=== PATIENT | male | born 1990 | race Hispanic/Latino ===

== ENCOUNTER 2018-03-09 18:04 | Emergency (ER) | payer SELFPAY ==
[2018-03-09 18:58] LABS: EOSINOPHILS % (AUTO) 1.6 % (0.0-8.0); HEMATOCRIT 42.1 % (42-54); LYMPHOCYTES % (AUTO) 35.1 % (21.0-51.0); MEAN CORPUSCULAR HEMOGLOBIN 29.1 pg (27.0-33.0); MEAN CORPUSCULAR HGB CONC 34.6 g/dL (32.0-36.0); MEAN CORPUSCULAR VOLUME 83.9 fL (79-99); NEUTROPHILS % (AUTO) 54.3 % (40.0-77.0); NUCLEATED RED BLOOD CELLS 0.1 % (0.0-0.19); PLATELET COUNT (AUTO) 251 K/uL (130-400); RED BLOOD CELL COUNT(AUTO) 5.02 MIL/uL (4.50-6.20); WHITE BLOOD COUNT (AUTO) 7.7 K/uL (4.8-10.8)
[2018-03-09 19:00] LABS: APPEARANCE,URINE Clear (CLEAR); BILIRUBIN,URINE Negative (NEGATIVE); COLOR,URINE Yellow (YELLOW); GLUCOSE, URINE (UA) Negative (NEGATIVE); KETONES,URINE Trace mg/dL (NEGATIVE); LEUKOCYTE ESTERASE ,URINE Negative (NEGATIVE); NITRATE,URINE Negative (NEGATIVE); OCCULT BLOOD,URINE Negative (NEGATIVE); PROTEIN,URINE Negative (NEGATIVE)
[2018-03-09 19:06] LABS: CREATININE 0.8 mg/dL (0.5-1.5); POTASSIUM 4.1 mmol/L (3.5-5.1)
[2018-03-09 19:08] LABS: AMPHET/METH SCREEN,URINE NEGATIVE (NEGATIVE); BARBITURATE SCREEN, URINE NEGATIVE (NEGATIVE); BENZODIAZEPINES SCREEN,URINE NEGATIVE (NEGATIVE); CANNABINOID SCREEN,URINE POSITIVE (NEGATIVE); COCAINE SCREEN,URINE NEGATIVE (NEGATIVE); OPIATE SCREEN,URINE NEGATIVE (NEGATIVE); PHENCYCLIDINE SCREEN,URINE NEGATIVE (NEGATIVE)
[2018-03-09 19:11] LABS: ALBUMIN 3.4 g/dL (3.5-5.0); BILIRUBIN,TOTAL 0.1 mg/dL (0.2-1.0); TOTAL PROTEIN, SERUM 6.6 g/dL (6.0-8.3)
== END 2018-03-09 20:24 | disposition home or self-care (01) ==
LOC: EDH 18:04
DX: K29.00 Acute gastritis without bleeding (principal)
CPT/HCPCS: 36415; 80053; 80305; 81003; 83690; 85025

== ENCOUNTER 2020-07-03 00:57 | Emergency (ER) | payer OTHER ==
[2020-07-03] MEDS ORDERED: FLUORESCEIN SODIUM 1 STRIP STRIP ONE (01:14)
[2020-07-03] MEDS ORDERED: TETRACAINE HCL 0.5% 4 ML OPHTH SOLN ONE (01:14)
== END 2020-07-03 01:51 | disposition home or self-care (01) ==
LOC: EDH 00:57
DX: S00.83XA Contusion of other part of head, initial encounter (principal); S50.811A Abrasion of right forearm, initial encounter; X58.XXXA Exposure to other specified factors, initial encounter; Y93.89 Activity, other specified; Y92.89 Other specified places as the place of occurrence of the external cause; Y99.8 Other external cause status

== ENCOUNTER 2024-06-24 19:41 | Inpatient (IN) | payer BC ==
[~2024-06-24] VITALS: Ht 162.6 cm; Wt 38.6 kg
[2024-06-24 23:28] VITALS: PULSE 89; O2SAT 97
[2024-06-24 23:45] VITALS: O2SAT 97
[2024-06-24 23:49] VITALS: BP 149/77; PULSE 96; RESP 29; TEMP 98.3
[2024-06-25] VITALS (47 sets, daily range): BP systolic 118–160; BP diastolic 74–101; PULSE 74–106; RESP 12–22; TEMP 98.1–99.1; O2SAT 97–100
[2024-06-25 01:18] LABS: APPEARANCE,URINE CLEAR (CLEAR); BILIRUBIN,URINE NEGATIVE (NEGATIVE); COLOR,URINE LIGHT-YELLOW (YELLOW); GLUCOSE, URINE (UA) NEGATIVE (NEGATIVE); KETONES,URINE NEGATIVE (NEGATIVE); LEUKOCYTE ESTERASE ,URINE 25 Leu/uL (NEGATIVE); NITRATE,URINE NEGATIVE (NEGATIVE); OCCULT BLOOD,URINE NEGATIVE (NEGATIVE); PROTEIN,URINE NEGATIVE (NEGATIVE); UROBILINOGEN,URINE 0.2 mg/dL (0.2-1.0)
[2024-06-25 01:30] LABS: ADD UA MICROSCOPIC YES
[2024-06-25] MEDS ORDERED: HYDROcodone/APAP 5/325 1 TAB TABLET PO PRN (01:30)
[2024-06-25] MEDS ORDERED: acetaMINOPHEN 650 MG SUPPOSITORY RC PRN (01:30)
[2024-06-25] MEDS ORDERED: acetaMINOPHEN 325 MG TAB PO PRN (01:30)
[2024-06-25 01:34] LABS: BACTERIA,URINE RARE /HPF (None Seen); MUCUS,URINE FEW LPF (None Seen); YEAST,URINE BUDDING FEW /HPF (None Seen); YEAST,URINE HYPHAE FEW /HPF (None Seen)
[2024-06-25 01:41] LABS: BASOPHILS # (AUTO) 0.04 K/uL (0.00-0.20); BASOPHILS % (AUTO) 0.3 % (0.0-5.0); EOSINOPHILS # (AUTO) 0.05 K/uL (0.00-0.70); EOSINOPHILS % (AUTO) 0.4 % (0.0-8.0); HEMATOCRIT 29.1 % (42-54); IMMATURE GRANULOCYTE ABSOLUTE 0.06 K/uL (0-1); LYMPHOCYTES # (AUTO) 0.8 K/uL (1.0-4.8); LYMPHOCYTES % (AUTO) 5.9 % (21.0-51.0); MEAN CORPUSCULAR HEMOGLOBIN 27.8 pg (27.0-33.0); MEAN CORPUSCULAR HGB CONC 31.3 g/dL (32.0-36.0); MONOCYTES # (AUTO) 1.5 K/uL (0.1-1.0); MONOCYTES % (AUTO) 10.8 % (3.0-13.0); NEUTROPHILS # (AUTO) 11.1 K/uL (1.8-7.7); NEUTROPHILS % (AUTO) 82.2 % (40.0-77.0); PLATELET COUNT (AUTO) 423 K/uL (130-400); RED BLOOD CELL COUNT(AUTO) 3.27 MIL/uL (4.50-6.20); RED CELL DISTRIBUTION WIDTH 17.5 % (11.0-15.5); WHITE BLOOD COUNT (AUTO) 13.6 K/uL (4.8-10.8)
[2024-06-25 01:44] LABS: ABG BASE EXCESS 5.4 mmol/L (-2.0-3.0); ABG HCO3 28.5 mmol/L (21.0-28.0); ABG OXYGEN SATURATION 98.4 % (94.0-98.0); ABG PCO2 37 mmHg (35-48); ABG PH 7.506 (7.350-7.450); PO2, ARTERIAL BG 111.8 mmHg (83.0-108.0); VENT MODE, BG AC VC (ROOM AIR)
[2024-06-25] MEDS: 0.9%NACL 1000ML 1,000 ML IV SCH (01:58)
[2024-06-25 01:59] LABS: ALBUMIN 1.3 g/dL (3.5-5.0); BILIRUBIN,TOTAL 0.2 mg/dL (0.2-1.0); CREATININE 0.5 mg/dL (0.5-1.3); PHOSPHORUS 3.7 mg/dL (2.5-4.9); TOTAL PROTEIN, SERUM 5.8 g/dL (6.0-8.3)
[2024-06-25] MEDS ORDERED: hydroMORPHone 0.5 MG SYG (0.5MG/0.5ML) IVP PRN ×2 (02:00→10:30)
[2024-06-25 02:03] LABS: POTASSIUM 2.9 mmol/L (3.5-5.1)
[2024-06-25] MEDS: PoTASSium chloRIDE 20MEQ/100ML 100 ML IV PRN (02:49)
[2024-06-25] MEDS: 0.9% NACL 500ML IV.SOLN 500 ML IV SCH (02:49)
[2024-06-25 04:09] LABS: SARS-CoV-2, RNA, NAAT NEGATIVE SARS CoV-2 (NEGATIVE)
[2024-06-25 04:14] LABS: INFLUENZA TYPE A Negative For Type A (NEGATIVE); INFLUENZA TYPE B Negative For Type B (NEGATIVE)
[2024-06-25] MEDS ORDERED: METO25TA6 PO (05:18)
[2024-06-25] MEDS ORDERED: FENT1PAT62 TD (05:18)
[2024-06-25] MEDS ORDERED: METO5SOL26 PO (05:18)
[2024-06-25] MEDS ORDERED: PANT40VI IV (05:18)
[2024-06-25] MEDS ORDERED: QUET50TA24 PO (05:18)
[2024-06-25] MEDS ORDERED: FOLI1 PO (05:18)
[2024-06-25] MEDS ORDERED: DIAZ10TA4 PO (05:18)
[2024-06-25] MEDS ORDERED: SCOP1PAT11 TD (05:18)
[2024-06-25] MEDS: INSULIN humuLIN R 100 UNIT/ML 3ML SQ SCH (06:00)
[2024-06-25] MEDS: IpraTROPium 0.5 MG/2.5 ML INH IH SCH (06:42)
[2024-06-25 10:58] LABS: ABG BASE EXCESS 4.4 mmol/L (-2.0-3.0); ABG OXYGEN SATURATION 99.1 % (94.0-98.0); ABG PCO2 38 mmHg (35-48); ABG PH 7.482 (7.350-7.450); PO2, ARTERIAL BG 155.8 mmHg (83.0-108.0); VENT MODE, BG AC (ROOM AIR)
[2024-06-25 11:13] LABS: BILIRUBIN,TOTAL 0.1 mg/dL (0.2-1.0); CREATININE 0.3 mg/dL (0.5-1.3); PHOSPHORUS 3.6 mg/dL (2.5-4.9); POTASSIUM 3.1 mmol/L (3.5-5.1); TOTAL PROTEIN, SERUM 4.8 g/dL (6.0-8.3)
[2024-06-25 11:20] LABS: INR 1.34 (0.85-1.15); PROTHROMBIN TIME 14.2 SEC (9.6-11.6)
[2024-06-25 11:32] LABS: BASOPHILS # (AUTO) 0.03 K/uL (0.00-0.20); BASOPHILS % (AUTO) 0.2 % (0.0-5.0); EOSINOPHILS # (AUTO) 0.01 K/uL (0.00-0.70); EOSINOPHILS % (AUTO) 0.1 % (0.0-8.0); HEMATOCRIT 25.2 % (42-54); IMMATURE GRANULOCYTE ABSOLUTE 0.08 K/uL (0-1); LYMPHOCYTES # (AUTO) 0.8 K/uL (1.0-4.8); LYMPHOCYTES % (AUTO) 5.9 % (21.0-51.0); MEAN CORPUSCULAR HEMOGLOBIN 28.1 pg (27.0-33.0); MEAN CORPUSCULAR HGB CONC 31.3 g/dL (32.0-36.0); MEAN CORPUSCULAR VOLUME 89.7 fL (79-99); MONOCYTES # (AUTO) 1.2 K/uL (0.1-1.0); MONOCYTES % (AUTO) 9.2 % (3.0-13.0); NEUTROPHILS # (AUTO) 11.3 K/uL (1.8-7.7); PLATELET COUNT (AUTO) 310 K/uL (130-400); RED BLOOD CELL COUNT(AUTO) 2.81 MIL/uL (4.50-6.20); RED CELL DISTRIBUTION WIDTH 17.6 % (11.0-15.5); WHITE BLOOD COUNT (AUTO) 13.5 K/uL (4.8-10.8)
[2024-06-25] MEDS: DEXTROSE 50%-WATER 50 ML DISP.SYRIN IV ONE (11:52)
[2024-06-25] MEDS: diazePAM 5 MG TAB PO SCH (12:30)
[2024-06-25] MEDS: SCOPOLAMINE HYDROBROMIDE 1 EACH ADH..PATCH TD SCH (12:30)
[2024-06-25] MEDS: LACTATED RINGERS 1000ML 1,000 ML IV SCH (12:31)
[2024-06-25] MEDS: queTIAPine fuMARate 25 MG TAB PO SCH (15:47)
[2024-06-25] MEDS: ENOXAPARIN SODIUM 40 MG/0.4 ML SYRINGE SQ ONE (15:49)
[2024-06-25] MEDS: PoTASSium chl 10% ELIXIR 20MEQ 20 MEQ/15 ML UDCUP PO PRN (15:50)
[2024-06-25] MEDS: PANTOPrazole 40 MG/VIAL IV SCH (20:34)
[2024-06-25] MEDS: metoPROLOL tartRATE 25 MG TAB PO SCH (20:34)
[2024-06-26] VITALS (38 sets, daily range): BP systolic 128–169; BP diastolic 63–94; PULSE 73–125; RESP 12–24; TEMP 97.9–98.6; O2SAT 97–100
[2024-06-26 03:47] LABS: BASOPHILS # (AUTO) 0.04 K/uL (0.00-0.20); BASOPHILS % (AUTO) 0.3 % (0.0-5.0); EOSINOPHILS # (AUTO) 0.04 K/uL (0.00-0.70); EOSINOPHILS % (AUTO) 0.3 % (0.0-8.0); HEMATOCRIT 26.6 % (42-54); IMMATURE GRANULOCYTE ABSOLUTE 0.09 K/uL (0-1); LYMPHOCYTES # (AUTO) 0.9 K/uL (1.0-4.8); LYMPHOCYTES % (AUTO) 7.9 % (21.0-51.0); MEAN CORPUSCULAR HEMOGLOBIN 27.6 pg (27.0-33.0); MEAN CORPUSCULAR HGB CONC 30.5 g/dL (32.0-36.0); MEAN CORPUSCULAR VOLUME 90.8 fL (79-99); MONOCYTES # (AUTO) 1.2 K/uL (0.1-1.0); MONOCYTES % (AUTO) 10.3 % (3.0-13.0); NEUTROPHILS # (AUTO) 9.5 K/uL (1.8-7.7); NEUTROPHILS % (AUTO) 80.4 % (40.0-77.0); PLATELET COUNT (AUTO) 328 K/uL (130-400); RED BLOOD CELL COUNT(AUTO) 2.93 MIL/uL (4.50-6.20); RED CELL DISTRIBUTION WIDTH 17.6 % (11.0-15.5); WHITE BLOOD COUNT (AUTO) 11.8 K/uL (4.8-10.8)
[2024-06-26 05:37] LABS: CREATININE 0.4 mg/dL (0.5-1.3); MAGNESIUM 1.4 mg/dL (1.80-2.40); PHOSPHORUS 3.1 mg/dL (2.5-4.9)
[2024-06-26] MEDS: traMADol HCL 50 MG TABLET PO PRN (05:37)
[2024-06-26] MEDS: MAGNESIUM 2GM PREMIX 50ML 50 ML IV PRN (06:46)
[2024-06-26] MEDS: ENOXAPARIN SODIUM 30 MG/0.3 ML SQ SCH (08:22)
[2024-06-26] MEDS: FOLic ACID 1 MG TABLET PO SCH (08:30)
[2024-06-26] MEDS ORDERED: ENOXAPARIN SODIUM 40 MG/0.4 ML SYRINGE SQ SCH (09:00)
[2024-06-26] MEDS ORDERED: LORA2VIA34 IVP (12:29)
[2024-06-26] MEDS ORDERED: LACT-461 PO (12:29)
[2024-06-26] MEDS ORDERED: ACET650O3 PO (12:29)
[2024-06-26] MEDS ORDERED: BALS60OI TP (12:29)
[2024-06-26] MEDS ORDERED: ACET650S14 RC (12:29)
[2024-06-26] MEDS ORDERED: MIDO10TA PO (12:29)
[2024-06-26] MEDS ORDERED: AMPI3VIA IV (12:29)
[2024-06-26] MEDS ORDERED: PROM25VI IVP (12:29)
[2024-06-26] MEDS ORDERED: TIGE50VI4 IV (12:29)
[2024-06-26] MEDS ORDERED: NYST1POW10 MC (12:29)
[2024-06-26] MEDS: dexmedeTOMIDine 400MCG/NS100ML IV PRN (21:52)
[2024-06-26] MEDS: dexmedeTOMIDine 400MCG/NS100ML IV ONE (21:53)
[2024-06-27] VITALS (39 sets, daily range): BP systolic 125–166; BP diastolic 68–91; PULSE 61–100; RESP 14–27; TEMP 98.2–99.2; O2SAT 73–100
[2024-06-27] MEDS: ZOSYN 3.375GM +NS 50ML IV SCH (00:19)
[2024-06-27 03:57] LABS: BASOPHILS # (AUTO) 0.03 K/uL (0.00-0.20); BASOPHILS % (AUTO) 0.3 % (0.0-5.0); EOSINOPHILS # (AUTO) 0.05 K/uL (0.00-0.70); EOSINOPHILS % (AUTO) 0.5 % (0.0-8.0); HEMATOCRIT 27.5 % (42-54); IMMATURE GRANULOCYTE ABSOLUTE 0.05 K/uL (0-1); LYMPHOCYTES # (AUTO) 1.3 K/uL (1.0-4.8); LYMPHOCYTES % (AUTO) 13.4 % (21.0-51.0); MEAN CORPUSCULAR HGB CONC 31.3 g/dL (32.0-36.0); MEAN CORPUSCULAR VOLUME 89.6 fL (79-99); MONOCYTES # (AUTO) 0.9 K/uL (0.1-1.0); MONOCYTES % (AUTO) 9.4 % (3.0-13.0); NEUTROPHILS # (AUTO) 7.6 K/uL (1.8-7.7); NEUTROPHILS % (AUTO) 75.9 % (40.0-77.0); PLATELET COUNT (AUTO) 292 K/uL (130-400); RED BLOOD CELL COUNT(AUTO) 3.07 MIL/uL (4.50-6.20)
[2024-06-27 04:27] LABS: CREATININE 0.3 mg/dL (0.5-1.3); POTASSIUM 3.5 mmol/L (3.5-5.1)
[2024-06-27 04:40] LABS: ABG BASE EXCESS 3.9 mmol/L (-2.0-3.0); ABG HCO3 28.7 mmol/L (21.0-28.0); ABG OXYGEN SATURATION 74.7 % (94.0-98.0); ABG PCO2 44 mmHg (35-48); ABG PH 7.435 (7.350-7.450); DEVICE COMMENT rr rn polly; PO2, ARTERIAL BG < 45.0 mmHg (83.0-108.0)
[2024-06-27] MEDS: HALOPERIDOL INJ 5 MG/ML VIAL IV PRN (10:23)
[2024-06-27 19:15] LABS: MAGNESIUM 1.4 mg/dL (1.80-2.40); POTASSIUM 3.4 mmol/L (3.5-5.1)
[2024-06-28] VITALS (85 sets, daily range): BP systolic 126–168; BP diastolic 73–100; PULSE 58–90; RESP 13–32; TEMP 97–98.9; O2SAT 96–100
[2024-06-28 05:35] LABS: BASOPHILS # (AUTO) 0.04 K/uL (0.00-0.20); BASOPHILS % (AUTO) 0.4 % (0.0-5.0); EOSINOPHILS # (AUTO) 0.03 K/uL (0.00-0.70); EOSINOPHILS % (AUTO) 0.3 % (0.0-8.0); HEMATOCRIT 27.9 % (42-54); IMMATURE GRANULOCYTE ABSOLUTE 0.04 K/uL (0-1); LYMPHOCYTES # (AUTO) 0.7 K/uL (1.0-4.8); LYMPHOCYTES % (AUTO) 7.9 % (21.0-51.0); MEAN CORPUSCULAR HEMOGLOBIN 27.8 pg (27.0-33.0); MEAN CORPUSCULAR HGB CONC 31.5 g/dL (32.0-36.0); MONOCYTES # (AUTO) 0.6 K/uL (0.1-1.0); MONOCYTES % (AUTO) 6.4 % (3.0-13.0); NEUTROPHILS % (AUTO) 84.6 % (40.0-77.0); PLATELET COUNT (AUTO) 305 K/uL (130-400); RED BLOOD CELL COUNT(AUTO) 3.17 MIL/uL (4.50-6.20); RED CELL DISTRIBUTION WIDTH 16.6 % (11.0-15.5); WHITE BLOOD COUNT (AUTO) 9.4 K/uL (4.8-10.8)
[2024-06-28 05:45] LABS: INR 1.16 (0.85-1.15); PROTHROMBIN TIME 12.4 SEC (9.6-11.6)
[2024-06-28 06:03] LABS: CREATININE 0.3 mg/dL (0.5-1.3); POTASSIUM 3.3 mmol/L (3.5-5.1)
[2024-06-29] VITALS (99 sets, daily range): BP systolic 144–180; BP diastolic 79–111; PULSE 62–108; RESP 11–32; TEMP 98.5–98.8; O2SAT 95–100
[2024-06-29 03:28] LABS: ABG BASE EXCESS 4.9 mmol/L (-2.0-3.0); ABG HCO3 27.3 mmol/L (21.0-28.0); ABG OXYGEN SATURATION 97.4 % (94.0-98.0); ABG PCO2 34 mmHg (35-48); ABG PH 7.527 (7.350-7.450); DEVICE COMMENT RR RN SANDRA; PO2, ARTERIAL BG 85.2 mmHg (83.0-108.0); VENT MODE, BG ACVC (ROOM AIR)
[2024-06-29 04:16] LABS: BASOPHILS # (AUTO) 0.01 K/uL (0.00-0.20); BASOPHILS % (AUTO) 0.1 % (0.0-5.0); EOSINOPHILS # (AUTO) 0.01 K/uL (0.00-0.70); EOSINOPHILS % (AUTO) 0.1 % (0.0-8.0); HEMATOCRIT 26.8 % (42-54); IMMATURE GRANULOCYTE ABSOLUTE 0.07 K/uL (0-1); LYMPHOCYTES # (AUTO) 0.7 K/uL (1.0-4.8); MEAN CORPUSCULAR HEMOGLOBIN 28.2 pg (27.0-33.0); MEAN CORPUSCULAR HGB CONC 32.5 g/dL (32.0-36.0); MEAN CORPUSCULAR VOLUME 86.7 fL (79-99); MONOCYTES # (AUTO) 0.7 K/uL (0.1-1.0); NEUTROPHILS # (AUTO) 10.6 K/uL (1.8-7.7); NEUTROPHILS % (AUTO) 87.2 % (40.0-77.0); PLATELET COUNT (AUTO) 351 K/uL (130-400); RED BLOOD CELL COUNT(AUTO) 3.09 MIL/uL (4.50-6.20); RED CELL DISTRIBUTION WIDTH 16.8 % (11.0-15.5); WHITE BLOOD COUNT (AUTO) 12.1 K/uL (4.8-10.8)
[2024-06-29 04:30] LABS: CREATININE 0.3 mg/dL (0.5-1.3); MAGNESIUM 1.4 mg/dL (1.80-2.40); PHOSPHORUS 2.3 mg/dL (2.5-4.9); POTASSIUM 3.1 mmol/L (3.5-5.1)
[2024-06-29] MEDS: HONEY 1 APPL/ML TUBE TP SCH (08:47)
[2024-06-29] MEDS: PoTASSium chl 10% ELIXIR 20MEQ 20 MEQ/15 ML UDCUP PO SCH (08:48)
[2024-06-29] MEDS: MAGNESIUM OXIDE 400 MG TABLET PO SCH (08:48)
[2024-06-30] VITALS (37 sets, daily range): BP systolic 127–168; BP diastolic 78–114; PULSE 83–107; RESP 16–50; TEMP 97.5–99; O2SAT 95–100
[2024-06-30 03:45] LABS: CREATININE 0.3 mg/dL (0.5-1.3)
[2024-06-30 03:54] LABS: POTASSIUM 2.9 mmol/L (3.5-5.1)
[2024-06-30 09:22] LABS: MAGNESIUM 1.5 mg/dL (1.80-2.40)
[2024-06-30 15:25] LABS: ABG BASE EXCESS 4.6 mmol/L (-2.0-3.0); ABG HCO3 25.8 mmol/L (21.0-28.0); ABG OXYGEN SATURATION 86.1 % (94.0-98.0); ABG PCO2 28 mmHg (35-48); ABG PH 7.589 (7.350-7.450); CARBON MONOXIDE 0.3 % (0.5-1.5); DEVICE COMMENT RB EDDIE; HHb 13.8; PO2, ARTERIAL BG 45.7 mmHg (83.0-108.0); VENT MODE, BG AC-VC (ROOM AIR)
[2024-06-30 15:42] LABS: ABG BASE EXCESS 4.6 mmol/L (-2.0-3.0); ABG HCO3 25.1 mmol/L (21.0-28.0); ABG OXYGEN SATURATION 95.6 % (94.0-98.0); ABG PCO2 27 mmHg (35-48); ABG PH 7.589 (7.350-7.450); DEVICE COMMENT RN EDDIE; PO2, ARTERIAL BG 64.2 mmHg (83.0-108.0); VENT MODE, BG AC (ROOM AIR)
[2024-06-30 18:34] LABS: MAGNESIUM 2.1 mg/dL (1.80-2.40); POTASSIUM 4.6 mmol/L (3.5-5.1)
[2024-07-01] VITALS (37 sets, daily range): BP systolic 122–164; BP diastolic 64–98; PULSE 76–103; RESP 14–47; TEMP 97.7–100.7; O2SAT 98–100
[2024-07-01 04:16] LABS: ABG BASE EXCESS 4.6 mmol/L (-2.0-3.0); ABG HCO3 26.2 mmol/L (21.0-28.0); ABG OXYGEN SATURATION 97.2 % (94.0-98.0); ABG PCO2 30 mmHg (35-48); ABG PH 7.554 (7.350-7.450); DEVICE COMMENT RR RN MARISSA; PO2, ARTERIAL BG 80.8 mmHg (83.0-108.0); VENT MODE, BG ACVC (ROOM AIR)
[2024-07-01 04:56] LABS: ALBUMIN 1.5 g/dL (3.5-5.0); BILIRUBIN,TOTAL 0.2 mg/dL (0.2-1.0); CREATININE 0.4 mg/dL (0.5-1.3); POTASSIUM 3.5 mmol/L (3.5-5.1); TOTAL PROTEIN, SERUM 5.7 g/dL (6.0-8.3)
[2024-07-01] MEDS: acetaMINOPHEN 650 MG/20.3 ML UDCUP NG PRN (08:52)
[2024-07-01] MEDS: TIGECYCLINE 100 MG in 0.9%NACL 100ML 100 ML IV ONE (12:17)
[2024-07-01] MEDS: TIGECYCLINE 50 MG in 0.9%NACL 100ML 100 ML IV SCH (22:26)
[2024-07-02] VITALS (47 sets, daily range): BP systolic 89–158; BP diastolic 42–110; PULSE 63–94; RESP 15–28; TEMP 97–99; O2SAT 92–100
[2024-07-02 04:41] LABS: BASOPHILS # (AUTO) 0.01 K/uL (0.00-0.20); BASOPHILS % (AUTO) 0.1 % (0.0-5.0); HEMATOCRIT 29.5 % (42-54); IMMATURE GRANULOCYTE ABSOLUTE 0.06 K/uL (0-1); LYMPHOCYTES % (AUTO) 8.4 % (21.0-51.0); MEAN CORPUSCULAR HEMOGLOBIN 27.9 pg (27.0-33.0); MEAN CORPUSCULAR HGB CONC 32.5 g/dL (32.0-36.0); MEAN CORPUSCULAR VOLUME 85.8 fL (79-99); MONOCYTES # (AUTO) 0.7 K/uL (0.1-1.0); MONOCYTES % (AUTO) 6.3 % (3.0-13.0); NEUTROPHILS # (AUTO) 9.5 K/uL (1.8-7.7); NEUTROPHILS % (AUTO) 84.7 % (40.0-77.0); PLATELET COUNT (AUTO) 370 K/uL (130-400); RED BLOOD CELL COUNT(AUTO) 3.44 MIL/uL (4.50-6.20); RED CELL DISTRIBUTION WIDTH 16.8 % (11.0-15.5); WHITE BLOOD COUNT (AUTO) 11.3 K/uL (4.8-10.8)
[2024-07-02 04:54] LABS: INR 1.38 (0.85-1.15); PROTHROMBIN TIME 14.6 SEC (9.6-11.6)
[2024-07-02 05:04] LABS: ALBUMIN 1.4 g/dL (3.5-5.0); BILIRUBIN,TOTAL 0.2 mg/dL (0.2-1.0); CREATININE 0.4 mg/dL (0.5-1.3); POTASSIUM 3.2 mmol/L (3.5-5.1); TOTAL PROTEIN, SERUM 5.7 g/dL (6.0-8.3)
[2024-07-02 05:32] LABS: WBC MORPHOLOGY CONSISTENT W/DIFF
[2024-07-02] MEDS: DEXTROSE 50%-WATER 50 ML DISP.SYRIN IV ONE ×2 (16:10)
[2024-07-02] MEDS ORDERED: proPOFol 10 MG/ML 20ML VIAL IV ONE (16:15)
[2024-07-02] MEDS ORDERED: rocuRONium bROMide 10MG/1ML 5ML VL ONE (16:15)
[2024-07-02] MEDS ORDERED: ePHEDrine SULFate 50 MG/ML AMPULE ONE (16:17)
[2024-07-03] VITALS (58 sets, daily range): BP systolic 112–174; BP diastolic 68–105; PULSE 70–101; RESP 17–34; TEMP 97.2–100.1; O2SAT 95–100
[2024-07-03 03:30] LABS: ABG BASE EXCESS 0.9 mmol/L (-2.0-3.0); ABG HCO3 23.7 mmol/L (21.0-28.0); ABG OXYGEN SATURATION 80.2 % (94.0-98.0); ABG PCO2 32 mmHg (35-48); ABG PH 7.491 (7.350-7.450); CARBON MONOXIDE 0.3 % (0.5-1.5); DEVICE COMMENT RR; HHb 19.7; PO2, ARTERIAL BG < 45.0 mmHg (83.0-108.0); VENT MODE, BG AC (ROOM AIR)
[2024-07-03 03:41] LABS: ABG BASE EXCESS 3.2 mmol/L (-2.0-3.0); ABG HCO3 25.4 mmol/L (21.0-28.0); ABG OXYGEN SATURATION 94.2 % (94.0-98.0); ABG PCO2 31 mmHg (35-48); ABG PH 7.536 (7.350-7.450); CARBON MONOXIDE 0.3 % (0.5-1.5); DEVICE COMMENT RR; HHb 5.8; PO2, ARTERIAL BG 68.9 mmHg (83.0-108.0); VENT MODE, BG AC (ROOM AIR)
[2024-07-03] MEDS ORDERED: PHARMACY COMMUNICATION MISC SCH (06:30)
[2024-07-03] MEDS: HONEY 1 APPL/ML TUBE TP SCH (09:03)
[2024-07-03] MEDS: ENOXAPARIN SODIUM 30 MG/0.3 ML SQ SCH (13:07)
[2024-07-04] VITALS (53 sets, daily range): BP systolic 117–186; BP diastolic 70–107; PULSE 66–89; RESP 18–65; TEMP 97.1–99.1; O2SAT 95–100
[2024-07-04 04:46] LABS: BASOPHILS # (AUTO) 0.01 K/uL (0.00-0.20); BASOPHILS % (AUTO) 0.1 % (0.0-5.0); EOSINOPHILS # (AUTO) 0.01 K/uL (0.00-0.70); EOSINOPHILS % (AUTO) 0.1 % (0.0-8.0); HEMATOCRIT 26.5 % (42-54); IMMATURE GRANULOCYTE ABSOLUTE 0.06 K/uL (0-1); LYMPHOCYTES # (AUTO) 1.1 K/uL (1.0-4.8); LYMPHOCYTES % (AUTO) 10.9 % (21.0-51.0); MEAN CORPUSCULAR HEMOGLOBIN 28.3 pg (27.0-33.0); MEAN CORPUSCULAR HGB CONC 32.5 g/dL (32.0-36.0); MEAN CORPUSCULAR VOLUME 87.2 fL (79-99); MONOCYTES # (AUTO) 1.1 K/uL (0.1-1.0); MONOCYTES % (AUTO) 10.3 % (3.0-13.0); PLATELET COUNT (AUTO) 363 K/uL (130-400); RED BLOOD CELL COUNT(AUTO) 3.04 MIL/uL (4.50-6.20); RED CELL DISTRIBUTION WIDTH 17.2 % (11.0-15.5); WHITE BLOOD COUNT (AUTO) 10.2 K/uL (4.8-10.8)
[2024-07-04 04:56] LABS: CREATININE 0.4 mg/dL (0.5-1.3); POTASSIUM 4.1 mmol/L (3.5-5.1)
[2024-07-05] VITALS (52 sets, daily range): BP systolic 119–152; BP diastolic 72–106; PULSE 65–96; RESP 19–68; TEMP 97.7–99.5; O2SAT 92–100
[2024-07-05 03:20] LABS: ABG BASE EXCESS 2.3 mmol/L (-2.0-3.0); ABG HCO3 23.1 mmol/L (21.0-28.0); ABG OXYGEN SATURATION 99.1 % (94.0-98.0); ABG PCO2 27 mmHg (35-48); ABG PH 7.558 (7.350-7.450); DEVICE COMMENT RR RN; PO2, ARTERIAL BG 139.9 mmHg (83.0-108.0); VENT MODE, BG AC (ROOM AIR)
[2024-07-05 03:43] LABS: BASOPHILS # (AUTO) 0.01 K/uL (0.00-0.20); BASOPHILS % (AUTO) 0.1 % (0.0-5.0); EOSINOPHILS # (AUTO) 0.01 K/uL (0.00-0.70); EOSINOPHILS % (AUTO) 0.1 % (0.0-8.0); HEMATOCRIT 28.4 % (42-54); IMMATURE GRANULOCYTE ABSOLUTE 0.05 K/uL (0-1); LYMPHOCYTES # (AUTO) 1.1 K/uL (1.0-4.8); LYMPHOCYTES % (AUTO) 12.4 % (21.0-51.0); MEAN CORPUSCULAR HEMOGLOBIN 27.8 pg (27.0-33.0); MEAN CORPUSCULAR HGB CONC 32.7 g/dL (32.0-36.0); MEAN CORPUSCULAR VOLUME 84.8 fL (79-99); MONOCYTES # (AUTO) 0.7 K/uL (0.1-1.0); MONOCYTES % (AUTO) 8.6 % (3.0-13.0); NEUTROPHILS # (AUTO) 6.8 K/uL (1.8-7.7); NEUTROPHILS % (AUTO) 78.2 % (40.0-77.0); PLATELET COUNT (AUTO) 412 K/uL (130-400); RED BLOOD CELL COUNT(AUTO) 3.35 MIL/uL (4.50-6.20); RED CELL DISTRIBUTION WIDTH 16.8 % (11.0-15.5); WHITE BLOOD COUNT (AUTO) 8.7 K/uL (4.8-10.8)
[2024-07-05 04:22] LABS: CREATININE 0.3 mg/dL (0.5-1.3); POTASSIUM 3.3 mmol/L (3.5-5.1)
[2024-07-05] MEDS ORDERED: metoPROLOL tartRATE 1 MG/ML 5ML VIAL IV ONE (08:30)
[2024-07-05] MEDS: diazePAM 5 MG TAB PO SCH (17:42)
[2024-07-05] MEDS: queTIAPine fuMARate 25 MG TAB PO SCH (20:00)
[2024-07-06] VITALS (56 sets, daily range): BP systolic 107–173; BP diastolic 39–110; PULSE 72–113; RESP 14–57; TEMP 98–98.6; O2SAT 96–100
[2024-07-06 04:23] LABS: BASOPHILS # (AUTO) 0.01 K/uL (0.00-0.20); BASOPHILS % (AUTO) 0.1 % (0.0-5.0); EOSINOPHILS # (AUTO) 0.03 K/uL (0.00-0.70); EOSINOPHILS % (AUTO) 0.4 % (0.0-8.0); HEMATOCRIT 30.5 % (42-54); IMMATURE GRANULOCYTE ABSOLUTE 0.04 K/uL (0-1); LYMPHOCYTES % (AUTO) 12.3 % (21.0-51.0); MEAN CORPUSCULAR HEMOGLOBIN 27.8 pg (27.0-33.0); MEAN CORPUSCULAR HGB CONC 32.5 g/dL (32.0-36.0); MEAN CORPUSCULAR VOLUME 85.7 fL (79-99); MONOCYTES % (AUTO) 11.9 % (3.0-13.0); NEUTROPHILS # (AUTO) 6.1 K/uL (1.8-7.7); NEUTROPHILS % (AUTO) 74.8 % (40.0-77.0); PLATELET COUNT (AUTO) 393 K/uL (130-400); RED BLOOD CELL COUNT(AUTO) 3.56 MIL/uL (4.50-6.20); RED CELL DISTRIBUTION WIDTH 16.8 % (11.0-15.5); WHITE BLOOD COUNT (AUTO) 8.1 K/uL (4.8-10.8)
[2024-07-06 04:32] LABS: CREATININE 0.3 mg/dL (0.5-1.3)
[2024-07-06 04:40] LABS: POTASSIUM 2.7 mmol/L (3.5-5.1)
[2024-07-06 10:33] LABS: MAGNESIUM 2.1 mg/dL (1.80-2.40); POTASSIUM 5.3 mmol/L (3.5-5.1)
[2024-07-06] MEDS: diazePAM 5 MG TAB PO SCH (11:50)
[2024-07-06] MEDS: metoPROLOL tartRATE 25 MG TAB PO SCH (20:30)
[2024-07-07] VITALS (59 sets, daily range): BP systolic 99–159; BP diastolic 51–93; PULSE 73–92; RESP 10–33; TEMP 97.5–98.9; O2SAT 95–100
[2024-07-07 04:37] LABS: HEMATOCRIT 28.1 % (42-54); MEAN CORPUSCULAR HEMOGLOBIN 27.9 pg (27.0-33.0); MEAN CORPUSCULAR HGB CONC 32.7 g/dL (32.0-36.0); MEAN CORPUSCULAR VOLUME 85.2 fL (79-99); RED BLOOD CELL COUNT(AUTO) 3.3 MIL/uL (4.50-6.20); RED CELL DISTRIBUTION WIDTH 16.7 % (11.0-15.5); WHITE BLOOD COUNT (AUTO) 4.9 K/uL (4.8-10.8)
[2024-07-07 04:51] LABS: ALBUMIN 1.4 g/dL (3.5-5.0); BILIRUBIN,TOTAL 0.3 mg/dL (0.2-1.0); CREATININE 0.3 mg/dL (0.5-1.3); TOTAL PROTEIN, SERUM 5.6 g/dL (6.0-8.3)
[2024-07-07] MEDS: DEXTROSE 50%-WATER 50 ML DISP.SYRIN IV ONE (05:57)
[2024-07-07] MEDS: PoTASSium chl 10% ELIXIR 20MEQ 20 MEQ/15 ML UDCUP PO SCH (08:58)
[2024-07-07] MEDS: diazePAM 5 MG TAB PO SCH ×2 (12:25→23:29)
[2024-07-07] MEDS ORDERED: diazePAM 5 MG TAB PO PRN (19:30)
[2024-07-08] VITALS (51 sets, daily range): BP systolic 110–153; BP diastolic 55–84; PULSE 72–91; RESP 13–30; TEMP 97–100; O2SAT 94–99
[2024-07-08] MEDS: SCOPOLAMINE HYDROBROMIDE 1 EACH ADH..PATCH TD SCH (11:41)
[2024-07-09] VITALS (31 sets, daily range): BP systolic 127–162; BP diastolic 81–105; PULSE 71–99; RESP 13–29; TEMP 98.4–99.9; O2SAT 96–100
[2024-07-09 03:58] LABS: EOSINOPHILS # (AUTO) 0.01 K/uL (0.00-0.70); EOSINOPHILS % (AUTO) 0.3 % (0.0-8.0); HEMATOCRIT 27.1 % (42-54); IMMATURE GRANULOCYTE ABSOLUTE 0.01 K/uL (0-1); LYMPHOCYTES # (AUTO) 0.8 K/uL (1.0-4.8); LYMPHOCYTES % (AUTO) 22.2 % (21.0-51.0); MEAN CORPUSCULAR HEMOGLOBIN 27.6 pg (27.0-33.0); MEAN CORPUSCULAR HGB CONC 31.7 g/dL (32.0-36.0); MEAN CORPUSCULAR VOLUME 86.9 fL (79-99); MONOCYTES # (AUTO) 1.1 K/uL (0.1-1.0); MONOCYTES % (AUTO) 28.8 % (3.0-13.0); NEUTROPHILS # (AUTO) 1.8 K/uL (1.8-7.7); NEUTROPHILS % (AUTO) 48.4 % (40.0-77.0); PLATELET COUNT (AUTO) 330 K/uL (130-400); RED BLOOD CELL COUNT(AUTO) 3.12 MIL/uL (4.50-6.20); RED CELL DISTRIBUTION WIDTH 16.8 % (11.0-15.5); WHITE BLOOD COUNT (AUTO) 3.8 K/uL (4.8-10.8)
[2024-07-09 04:29] LABS: B-TYPE NATRIURETIC PEPTIDE 276 pg/mL (0-100)
[2024-07-09 04:54] LABS: ALBUMIN 1.5 g/dL (3.5-5.0); BILIRUBIN,TOTAL 0.2 mg/dL (0.2-1.0); CREATININE 0.4 mg/dL (0.5-1.3); TOTAL PROTEIN, SERUM 5.5 g/dL (6.0-8.3)
== END 2024-07-09 20:45 | DRG 870 ==
LOC: 2BH 23:18 → 2CH 07-03 07:55 → 2BH 07-05 18:25
PROVIDERS: ADMIT Internal Medicine; ATTEND Internal Medicine
PROC: 5A1955Z Respiratory Ventilation, Greater than 96 Consecutive Hours (ICD-10-PCS; principal; 2024-06-24)
PROC: 0DH63UZ Insertion of Feeding Device into Stomach, Percutaneous Approach (ICD-10-PCS; 2024-07-02)
PROC: 5A09357 Assistance with Respiratory Ventilation, Less than 24 Consecutive Hours, Continuous Positive Airway Pressure (ICD-10-PCS; 2024-07-02)
PROC: 02HV33Z Insertion of Infusion Device into Superior Vena Cava, Percutaneous Approach (ICD-10-PCS; 2024-07-02)
DX: A41.59 Other Gram-negative sepsis (principal); E43 Unspecified severe protein-calorie malnutrition; J15.69 Pneumonia due to other Gram-negative bacteria; J96.21 Acute and chronic respiratory failure with hypoxia; J69.0 Pneumonitis due to inhalation of food and vomit; R64 Cachexia; N39.0 Urinary tract infection, site not specified; C78.89 Secondary malignant neoplasm of other digestive organs; G93.40 Encephalopathy, unspecified; Z16.24 Resistance to multiple antibiotics; Z99.11 Dependence on respirator [ventilator] status; Z68.1 Body mass index [BMI] 19.9 or less, adult; Z20.822 Contact with and (suspected) exposure to COVID-19; R13.12 Dysphagia, oropharyngeal phase; E83.42 Hypomagnesemia; R62.7 Adult failure to thrive; D50.9 Iron deficiency anemia, unspecified; B96.1 Klebsiella pneumoniae [K. pneumoniae] as the cause of diseases classified elsewhere; L89.229 Pressure ulcer of left hip, unspecified stage; B96.83 Acinetobacter baumannii as the cause of diseases classified elsewhere; F41.9 Anxiety disorder, unspecified; K25.9 Gastric ulcer, unspecified as acute or chronic, without hemorrhage or perforation; L89.219 Pressure ulcer of right hip, unspecified stage; Z93.0 Tracheostomy status; Z90.3 Acquired absence of stomach [part of]; Z85.028 Personal history of other malignant neoplasm of stomach; Z74.01 Bed confinement status; Z79.899 Other long term (current) drug therapy
CPT/HCPCS: 36415; 36556; 36600; 43246; 71045; 80048; 80053; 81001; 82435; 82803; 82947; 82948; 83605; 83735; 83880; 84100; 84132; 84145; 84295; 85018; 85025; 85027; 85610; 85730; 86850; 86900; 86901; 87071; 87086; 87186; 87205; 87635; 87804; 93971; 94002; 94003; 94640; 94664; A4344; B4082; G0378; J1630; J1650; J2470; J2543; J2704; J3243; J3475; J3480; J3490; J7070; A6213; A6214